=== PATIENT | female | born 1955 | race Caucasian/White ===

== ENCOUNTER 2022-04-23 12:41 | Inpatient (IN) ==
[2022-04-23 14:19] LABS: ABS Eosinophils 0.2 10^3/ul (0-0.6); ABS Lymphocytes 0.9 10^3/ul (1.0-4.8); ABS Monocytes 0.3 10^3/ul (0-0.8); ABS Neutrophils 4.7 10^3/ul (1.5-7.7); Eosinophil % 3.6 %; Hematocrit 38 % (35-47); Hemoglobin 12.8 g/dL (12.0-16.0); Lymphocyte % 14.7 %; Mean Corpuscular HGB Conc 34 g/dL (31-36); Mean Corpuscular Hemoglobin 31 pg (27-31); Mean Corpuscular Volume 90 fL (80-97); Mean Platelet Volume 7.6 fL (7.4-10.4); Platelet Count 236 10^3/uL (150-450); Red Blood Count 4.18 10^6 /uL (3.70-4.87); Red Cell Distribution Width 15 % (10-15); White Blood Count 6.2 10^3/uL (3.5-10.8)
[2022-04-23 15:00] LABS: Albumin 4.1 g/dL (3.2-5.2); Albumin/Globulin Ratio 1.6 (1-3); Calcium 9.2 mg/dL (8.6-10.3); Globulin 2.6 g/dL (2-4); Potassium 3.9 mmol/L (3.5-5.0); Total Bilirubin 0.4 mg/dL (0.2-1.0); Total Protein 6.7 g/dL (6.4-8.9); eGFR CKD-EPI 57.2 (>60)
[2022-04-23] MEDS ORDERED: Morphine 4 MG/ML VIAL (1 ml) IV ONE (15:32)
[2022-04-23] MEDS ORDERED: Lactated Ringers 1000 ml BAG 1,000 ML IV ONE (15:32)
[2022-04-23] MEDS ORDERED: Ondansetron 4 mg VIAL 2 MG/ML 2 ml VIAL IV PRN ×2 (15:45→16:40)
[2022-04-23] MEDS: Acetaminophen IV 1 GM/100ML 100 ML IV PRN (21:36)
[2022-04-23] MEDS ORDERED: Heparin 5000 UNITS/ML 1 mL VIAL SUBCUT SCH (22:00)
[2022-04-23 22:21] LABS: INR 1.04 (0.89-1.11)
[2022-04-24] MEDS: Lactated Ringers 1000 ml BAG 1,000 ML IV SCH ×2 (00:10→22:38)
[2022-04-24 01:15] LABS: Urine Appearance Clear; Urine Bilirubin Negative (Negative); Urine Blood Negative (Negative); Urine Color Yellow; Urine Glucose Negative (Negative); Urine Ketones Negative (Negative); Urine Nitrite Negative (Negative); Urine Protein Negative (Negative); Urine Specific Gravity 1.015 (1.005-1.030); Urine Urobilinogen 0.2 (Negative) (Negative); Urine pH 7.5 (5.0-9.0)
[2022-04-24 06:35] LABS: Calcium 8.5 mg/dL (8.6-10.3); eGFR CKD-EPI 64.4 (>60)
[2022-04-24] MEDS: Venlafaxine XR 75 mg PO SCH (10:01)
[2022-04-24] MEDS: CMCS: Lovastatin 10 mg TAB (NF) PO SCH (10:01)
[2022-04-24 11:36] LABS: Urine Appearance Clear; Urine Color Yellow; Urine Ketones Negative (Negative); Urine Protein Negative (Negative); Urine Specific Gravity 1.015 (1.005-1.030); Urine Urobilinogen 0.2 (Negative) (Negative)
[2022-04-24 11:37] LABS: Urine Bilirubin Negative (Negative); Urine Blood Negative (Negative); Urine Glucose Negative (Negative); Urine Nitrite Negative (Negative)
[2022-04-24] MEDS ORDERED: ceFAZolin 2 GM in NS PREMIX 2 GM/100 ML BAG IVPB ONE (13:44)
[2022-04-24] MEDS ORDERED: Lorazepam PYXIS KEY PRN (16:50)
[2022-04-24] MEDS ORDERED: LORazepam 2 mg VIAL 1 ml IV PUSH ONE (16:50)
[2022-04-24] MEDS ORDERED: Prochlorperazine 5 mg/ml 2 ml VIAL (10 mg) IV PRN ×2 (16:52→21:10)
[2022-04-24] MEDS ORDERED: Ondansetron 4 mg VIAL 2 MG/ML 2 ml VIAL IV PRN (16:52)
[2022-04-24] MEDS ORDERED: fentaNYL 100 mcg/2 ml 50 MCG/ML VIAL IV PRN ×2 (16:52→21:10)
[2022-04-24] MEDS ORDERED: Midazolam 2 mg/2 ml VIAL 1 mg/ml 2 ml VIAL (2 mg) ONE ×2 (17:41→18:37)
[2022-04-24] MEDS ORDERED: fentaNYL 100 mcg/2 ml 50 MCG/ML VIAL ONE ×2 (18:07→18:36)
[2022-04-24] MEDS ORDERED: Rocuronium 50 mg VIAL 10 mg/ml 5 ml VIAL (50 mg) ONE (20:11)
[2022-04-24] MEDS ORDERED: Dexamethasone IV 4 MG/ML VIAL 1 ml VIAL ONE (20:29)
[2022-04-24] MEDS ORDERED: Ondansetron 4 mg VIAL 2 MG/ML 2 ml VIAL ONE (20:29)
[2022-04-24] MEDS ORDERED: Acetaminophen IV 1 GM/100ML 100 ML IV ONE ×2 (21:10→21:12)
[2022-04-24] MEDS: Acetaminophen IV 1 GM/100ML 100 ML IV PRN (21:13)
[2022-04-25] MEDS: ceFAZolin 1 GM X 3 DOSES POST-OP Q8H (AddVan) IVPB SCH ×3 (02:52→19:49)
[2022-04-25 05:20] LABS: Hematocrit 30 % (35-47); Hemoglobin 10.4 g/dL (12.0-16.0); Mean Platelet Volume 7.4 fL (7.4-10.4); Platelet Count 202 10^3/uL (150-450)
[2022-04-25 05:44] LABS: Calcium 8.2 mg/dL (8.6-10.3); Potassium 3.7 mmol/L (3.5-5.0); eGFR CKD-EPI 59.9 (>60)
[2022-04-25] MEDS: CMCS: Lovastatin 10 mg TAB (NF) PO SCH (08:42)
[2022-04-25] MEDS: Venlafaxine XR 75 mg PO SCH (08:43)
[2022-04-25] MEDS: Enoxaparin 40 MG/0.4 ML SYR SUBCUT SCH (12:37)
[2022-04-25] MEDS ORDERED: Senna TAB 8.6 mg TAB PO PRN (14:05)
[2022-04-25] MEDS ORDERED: Magnesium Hydroxide LIQ 30 ML UDC PO PRN (14:05)
[2022-04-25] MEDS ORDERED: Polyethylene Glycol 3350 17 GM PACKET PO PRN (14:05)
[2022-04-25] MEDS: Magnesium Hydroxide LIQ 30 ML UDC PO SCH (20:04)
[2022-04-26 05:46] LABS: Hematocrit 25 % (35-47); Hemoglobin 8.4 g/dL (12.0-16.0); Mean Platelet Volume 7.1 fL (7.4-10.4); Platelet Count 158 10^3/uL (150-450)
[2022-04-26 06:26] LABS: Potassium 3.8 mmol/L (3.5-5.0); eGFR CKD-EPI 74.6 (>60)
[2022-04-26] MEDS: CMCS: Lovastatin 10 mg TAB (NF) PO SCH (09:29)
[2022-04-26] MEDS: Magnesium Hydroxide LIQ 30 ML UDC PO SCH (09:29)
[2022-04-26] MEDS: Venlafaxine XR 75 mg PO SCH (09:30)
[2022-04-26] MEDS: Enoxaparin 40 MG/0.4 ML SYR SUBCUT SCH (11:44)
[2022-04-26 15:24] LABS: Hematocrit 28 % (35-47); Hemoglobin 9.2 g/dL (12.0-16.0)
[2022-04-27 05:37] LABS: ABS Eosinophils 0.4 10^3/ul (0-0.6); ABS Monocytes 0.4 10^3/ul (0-0.8); ABS Neutrophils 2.3 10^3/ul (1.5-7.7); Eosinophil % 8.7 %; Hematocrit 26 % (35-47); Hemoglobin 8.8 g/dL (12.0-16.0); Lymphocyte % 23.9 %; Mean Corpuscular HGB Conc 34 g/dL (31-36); Mean Corpuscular Hemoglobin 30 pg (27-31); Mean Corpuscular Volume 91 fL (80-97); Mean Platelet Volume 7.5 fL (7.4-10.4); Nucleated Red Blood Cells % 0.1; Platelet Count 206 10^3/uL (150-450); Red Cell Distribution Width 15 % (10-15); White Blood Count 4.2 10^3/uL (3.5-10.8)
[2022-04-27 06:13] LABS: Calcium 8.2 mg/dL (8.6-10.3); Magnesium 2.2 mg/dL (1.9-2.7); eGFR CKD-EPI 94.1 (>60)
[2022-04-27] MEDS: Enoxaparin 40 MG/0.4 ML SYR SUBCUT SCH (09:59)
[2022-04-27] MEDS: Venlafaxine XR 75 mg PO SCH (09:59)
[2022-04-27] MEDS: CMCS: Lovastatin 10 mg TAB (NF) PO SCH (10:03)
[2022-04-27 11:15] VITALS: BP 127/86
== END 2022-04-27 14:50 | disposition home or self-care (01) | DRG 482 ==
LOC: ED 12:41 → EDHOLD 16:40 → SUATTDRO 16:40 → SSU 20:09
PROVIDERS: ADMIT Hospitalist; ATTEND Internal Medicine